=== PATIENT | female | born 1970 | race Caucasian/White ===

== ENCOUNTER → 2017-01-13 | Outpatient (CLI) | payer BC ==
[~2017-01-13] MED LIST: CYCL10TA6 PO
--- NOTE | 2017-01-15 09:05 | MAMMOGRAPHY REPORT ---
BILATERAL DIGITAL SCREENING MAMMOGRAM TOMOSYNTHESIS WITH CAD: 01/13/2017 CLINICAL HISTORY: Routine screening examination. TECHNIQUE: Breast tomosynthesis in addition to standard 2D mammography was performed. Current study was also evaluated with a Computer Aided Detection (CAD) system. COMPARISON: Comparison is made to exams dated: 09/19/2015 ultrasound and 09/19/2015 mammogram - [facility]. BREAST COMPOSITION: The tissue of both breasts is heterogeneously dense, which may obscure small ma sses. FINDINGS: No suspicious mass, architectural distortion or cluster of microcalcifications is seen. IMPRESSION: ACR BI-RADS CATEGORY 1: NEGATIVE There is no mammographic evidence of malignancy. A 1 year screening mammogram is recommended. The p atient will receive written notification of the results. Approximately 10% of breast cancers are not detected with mammography. A negative mammographic repor t should not delay biopsy if a clinically suggestive mass is present. Sariah mcneil/penlisa:01/13/2017 16:54:14 Software Design Engineer: Elenita CORONEL(Dwayne)([place]), [facility] letter sent: Normal 1/2 BI-RADS Code: ACR BI-RADS Category 1: Negative
== END | disposition home or self-care (01) ==
LOC: C.MAMM 16:29
PROVIDERS: ATTEND Obstetrics & Gynecology
DX: Z12.31 Encounter for screening mammogram for malignant neoplasm of breast (principal)

== ENCOUNTER → 2017-11-30 | Outpatient (CLI) | payer OTHER ==
[2017-11-30 16:38] LABS: BASO % 0.3 %; BASO ABS # 0.02 K/uL (0-0.2); EOS % 2.9 %; EOS ABS # 0.21 K/uL (0-0.5); HEMATOCRIT 38.9 % (37-47); HEMOGLOBIN 13.2 g/dL (12.0-16.0); IG# 0.02 K/uL (0.00-0.02); LYMPH % 40.3 %; LYMPH ABS # 2.88 K/uL (1.2-3.4); MEAN CELL VOLUME 90.5 fL (80-100); MEAN CORPUSCULAR HEMOGLOBIN 30.7 pg (25-34); MEAN CORPUSCULAR HGB CONC 33.9 g/dl (32-36); MEAN PLATELET VOLUME 10.3 fL (7.4-10.4); MONO % 6.7 %; MONO ABS # 0.48 K/uL (0.11-0.59); NEUT % 49.5 %; NEUT ABS # 3.54 K/uL (1.4-6.5); PLATELET COUNT 234 K/uL (130-400); RED CELL DISTRIBUTION WIDTH CV 13.3 % (11.5-14.5); RED CELL DISTRIBUTION WIDTH SD 43.5 fL (36.4-46.3); WHITE BLOOD COUNT 7.15 K/uL (4.8-10.8)
[2017-11-30 17:12] LABS: ALBUMIN 4.1 gm/dl (3.4-5.0); ALT/SGPT 20 U/L (12-78); BLOOD UREA NITROGEN 16 mg/dl (7-18); CALCIUM 9.1 mg/dl (8.5-10.1); CARBON DIOXIDE 27 mmol/L (21-32); CREATININE 0.76 mg/dl (0.60-1.20); GLUCOSE 113 mg/dl (70-99); POTASSIUM 3.7 mmol/L (3.5-5.1); SODIUM 135 mmol/L (136-145)
[2017-11-30 17:26] LABS: ALKALINE PHOSPHATASE 52 U/L (45-117); AST/SGOT 13 U/L (15-37); TOTAL PROTEIN 7.1 gm/dl (6.4-8.2)
== END | disposition home or self-care (01) ==
LOC: C.LAB1850 15:20
PROVIDERS: ATTEND Physician Assistant
DX: G43.909 Migraine, unspecified, not intractable, without status migrainosus (principal)

== ENCOUNTER → 2017-12-15 | Outpatient (CLI) | payer OTHER ==
--- NOTE | 2017-12-15 16:33 | DIAGNOSTIC IMAGING REPORT ---
CHEST 2 VIEWS ROUTINE HISTORY: Persistent cough. COMPARISON: None. FINDINGS: The lungs are clear. Cardiac silhouette is normal in size. No pleural effusions. No pneumothorax. IMPRESSION: No acute process. Electronically signed by: Boo Marks M.D. 12/15/2017 4:32 PM Dictated Date/Time: 12/15/2017 4:31 PM
== END | disposition home or self-care (01) ==
LOC: C.RAD1850 16:04
PROVIDERS: ATTEND Nurse Practitioner Family
DX: R05 Cough (principal); R06.02 Shortness of breath; R07.9 Chest pain, unspecified

== ENCOUNTER 2017-12-29 15:01 | Emergency (ER) | payer OTHER ==
[~2017-12-29] VITALS: Ht 165.1 cm; Wt 58.5 kg
[2017-12-29 15:03] VITALS: TEMP 36.3; Ht 165.1 cm; Wt 58.5 kg
[2017-12-29] MEDS ORDERED: KETOROLAC TROMETHAMINE 60 MG/2 ML VIAL IM STA (15:22)
[2017-12-29] MEDS ORDERED: DEXAMETHASONE SOD INJ 4 MG/ML 5 ML VIAL IM STA (15:22)
[2017-12-29] MEDS ORDERED: DEXAMETHASONE SOD INJ 4 MG/ML VIAL ONE (15:37)
[2017-12-29] MEDS ORDERED: CLAR500T38 PO (15:46)
[2017-12-29] MEDS ORDERED: HERBAL SUPPLEMENT PO (15:46)
[2017-12-29] MEDS ORDERED: ALBU18002 INH (15:46)
--- NOTE | 2017-12-29 16:20 | DIAGNOSTIC IMAGING REPORT ---
HEAD WITHOUT CONTRAST (CT) CT DOSE: HISTORY: Headache. Mental status change. Headache ?1 month TECHNIQUE: Multiaxial CT images of the head were performed without the use of intravenous contrast. A dose lowering technique was utilized adhering to the principles of ALARA. Comparison: None. Findings: Moderate mucosal thickening left mastoid air cells. The remaining sinuses are grossly clear. The calvarium and skull base are intact. The ventricles and sulci are within normal limits. There is no mass, hematoma, midline shift, or acute infarct. Impression: No acute intracranial abnormality. Moderate mucosal thickening left mastoid air cells. The above report was generated using voice recognition software. It may contain grammatical, syntax or spelling errors. Electronically signed by: Venkatesh Banerjee M.D. 12/29/2017 4:18 PM Dictated Date/Time: 12/29/2017 4:17 PM
--- NOTE | 2017-12-29 16:23 | DIAGNOSTIC IMAGING REPORT ---
CERVICAL SPINE W/O CLINICAL HISTORY: 47 years-old Female presenting with posterior head pain, headache for 1 month. TECHNIQUE: Multidetector CT of the cervical spine was performed without the use of intravenous contrast. IV contrast: None. A dose lowering technique was used consistent with the principles of ALARA (as low as reasonably achievable). COMPARISON: Plain radiographs from 06/06/2013. CT DOSE (mGy.cm): The estimated cumulative dose is 985.98 mGy.cm. FINDINGS: Harvest Manager topogram: Unremarkable. Reversal of normal cervical lordosis likely positional. Vertebral bodies maintain normal height and alignment. Intervertebral discs preserved with the exception of small disc osteophyte complexes at C5-6 and C6-7. No evidence of posterior bony spurring. No acute fracture or subluxation. No osseous neural foraminal or spinal canal narrowing. Extensive fluid in the mastoid air cells and left middle ear. Lung apices with biapical scarring paraspinal soft tissues demonstrate multiple thyroid nodules but are otherwise within normal limits allowing for noncontrast technique.. IMPRESSION: 1. No acute osseous injury of the cervical spine. 2. Mild degenerative changes focally at C5-6 and C6-7. No osseous neural foraminal or spinal canal narrowing. 3. Extensive fluid in the mastoid air cells and left middle ear. Electronically signed by: Beny Sellers M.D. 12/29/2017 4:21 PM Dictated Date/Time: 12/29/2017 4:18 PM
--- NOTE | 2017-12-29 16:37 | EMERGENCY ROOM VISIT NOTE ---
History First contact with patient: 15:09 Chief Complaint: HEAD PAIN Stated Complaint: HEAD PAIN History of Present Illness The patient is a 47 year old female who presents to the Emergency Room with complaints of headache for the past month. The patient states that she has a dull headache all the time and gets worse intermittently and will go up to an 8 out of 10 which it is today. The patient today states the pain is on the left posterior aspect of her head. She states sometimes it is on the right but mostly on the left. The patient denies any associated visual changes, dizziness , nausea or vomiting. The patient denies any neck pain. The patient states that the Motrin does ease up the pain but does not ever take it away. She has been seen by her family physician on several occasions for her current symptoms. She is scheduled with an ENT on January 10 for her left ear " looking funny" on exam. She states she does have ringing in the left ear and has slight decreased hearing in the left ear. The patient does not have a neurologist nor did they order a CT of the head. She does admit that they did laboratory testing in November. She also is battling recent pneumonia. She is currently on clindamycin. The patient states that sometimes she just feels very weak. She has a family history of an aneurysm in her brother that she had an MRA done in June 2013 which was negative for aneurysm. Review of Systems 10 system review was performed and was negative unless stated otherwise history of present illness. Past Medical/Surgical History Medical Problems: (1) Partial hysterectomy Social History Smoking Status: Never Smoker Alcohol Use: occasionally Marital Status: Housing Status: lives with family Occupation Status: employed Current/Historical Medications Scheduled Clarithromycin (Biaxin), 500 MG PO BID Scheduled PRN Albuterol Sulfate (Proair Respiclick), 2 PUFFS INH UD PRN for Cough/Wheeze/SOB [Herbal Supplement], 1 CAP PO UD PRN for Headache or Pain Physical Exam Vital Signs Date Time Temp Pulse Resp B/P (MAP) Pulse Ox O2 Delivery O2 Flow Rate FiO2 12/29/17 15:03 36.3 77 16 124/66 100 Room Air Physical Exam GENERAL: 47-year-old white female appears in no acute distress MENTAL Status: Alert and oriented 3. HEAD: Atraumatic, nontender to palpation. EYES: PERRLA. EOMs intact. EARS: Canals clear. Left TM with purulent fluid level noted as well as an air bubble noted behind the TM on the posterior aspect. NECK: Supple, no lymphadenopathy noted. No carotid bruits noted. LUNGS: Clear auscultation without wheezes rales or rhonchi. CARDIAC: Regular rate and rhythm without murmur. Pulses is full and equal throughout. CERVICAL SPINE: No gross bony deformity noted. The patient is nontender to palpation over the spinous processes in the paravertebral regions bilaterally. The patient has full range of motion of the cervical spine with pain elicited with right rotation only. NEURO:Cranial nerves two through 12 intact. Cerebellar function intact with [id number]. Fine motor intact with alternating finger motions. Medical Decision & Procedures ER Provider Diagnostic Interpretation: HEAD WITHOUT CONTRAST (CT) CT DOSE: HISTORY: Headache. Mental status change. Headache ?1 month TECHNIQUE: Multiaxial CT images of the head were performed without the use of intravenous contrast. A dose lowering technique was utilized adhering to the principles of ALARA. Comparison: None. Findings: Moderate mucosal thickening left mastoid air cells. The remaining sinuses are grossly clear. The calvarium and skull base are intact. The ventricles and sulci are within normal limits. There is no mass, hematoma, midline shift, or acute infarct. Impression: No acute intracranial abnormality. Moderate mucosal thickening left mastoid air cells. The above report was generated using voice recognition software. It may contain grammatical, syntax or spelling errors. Electronically signed by: Venkatesh Banerjee M.D. 12/29/2017 4:18 PM CERVICAL SPINE W/O CLINICAL HISTORY: 47 years-old Female presenting with posterior head pain, headache for 1 month. TECHNIQUE: Multidetector CT of the cervical spine was performed without the use of intravenous contrast. IV contrast: None. A dose lowering technique was used consistent with the principles of ALARA (as low as reasonably achievable). COMPARISON: Plain radiographs from 06/06/2013. CT DOSE (mGy.cm): The estimated cumulative dose is 985.98 mGy.cm. FINDINGS: Teacher Aide topogram: Unremarkable. Reversal of normal cervical lordosis likely positional. Vertebral bodies maintain normal height and alignment. Intervertebral discs preserved with the exception of small disc osteophyte complexes at C5-6 and C6-7. No evidence of posterior bony spurring. No acute fracture or subluxation. No osseous neural foraminal or spinal canal narrowing. Extensive fluid in the mastoid air cells and left middle ear. Lung apices with biapical scarring paraspinal soft tissues demonstrate multiple thyroid nodules but are otherwise within normal limits allowing for noncontrast technique.. IMPRESSION: 1. No acute osseous injury of the cervical spine. 2. Mild degenerative changes focally at C5-6 and C6-7. No osseous neural foraminal or spinal canal narrowing. 3. Extensive fluid in the mastoid air cells and left middle ear. Electronically signed by: Beny Sellers M.D. 12/29/2017 4:21 PM Medications Administered Medications (Trade) Dose Ordered Sig/Andrzej Route Start Time Stop Time Status Last Admin Dose Admin Ketorolac Tromethamine (Toradol Inj) 60 mg NOW STAT IM 12/29/17 15:22 12/29/17 15:25 DC 12/29/17 15:43 60 MG Diphenhydramine HCl (Benadryl Cap) 50 mg NOW ONCE PO 12/29/17 15:30 12/29/17 15:31 DC 12/29/17 15:42 50 MG Dexamethasone Sodium Phosphate (Decadron Inj) 12 mg STK-MED ONCE .ROUTE 12/29/17 15:37 12/29/17 15:38 DC 12/29/17 15:43 10 MG ED Course The patient was evaluated. The patient's EMR medication list were reviewed. The patient did have an MRA of the head performed in June 2013 which was negative. She had CBC and complete metabolic profile performed November 30, 2017 which was completely normal. The patient was given Benadryl 50 mg p.o., Decadron 10 mg IM and Toradol [address] of the head and chest was ordered and interpreted by the radiologist as above. CT of the neck revealed mild arthritis at the C5-C6 and C6-C7 level. CT the head was normal except for fluid within the left inner ear and fluid in the left mastoid. No evidence of mastoiditis. The patient was reevaluated and was feeling much better. She was informed of all findings and discharged home in stable condition. Medical Decision Differential includes: Acute intracranial bleed, trauma, meningitis, encephalitis, increased intracranial pressure, mass or mass effect, facial or dental infection, temporal arteritis, CVA, TIA, acute hypertensive emergency, sinusitis, carbon monoxide exposure, acoustic neuroma, mastoiditis [place] Drug Monitoring Program Search Results: patient reviewed within database Medication Reconcilliation Current Medication List: was personally reviewed by me Blood Pressure Screening Patient's blood pressure: Normal blood pressure Impression Primary Impression: Left otitis media with effusion Additional Impression: Headache Departure Information Dispostion Home / Self-Care Condition GOOD Referrals RV. Rousseau MD (PCP) Forms HOME CARE DOCUMENTATION FORM, IMPORTANT VISIT INFORMATION, WORK / SCHOOL INSTRUCTIONS Patient Instructions ED Headache Sinus, ED Otitis Media Acute Adult, [facility] Additional Instructions Continue clindamycin as prescribed. Recommend [id number] nasal decongestant for 5-7 days as directed on the label. Take Claritin daily. Tylenol and/or ibuprofen as needed for headache. Keep scheduled appointment with ENT on January 10 for definitive treatment. Problem Qualifiers Additional Impression: Headache Headache type: unspecified Headache chronicity pattern: acute headache Intractability: not intractable Qualified Codes: R51 - Headache
[2017-12-29 17:04] VITALS: BP 162/73; PULSE 77; O2SAT 100
== END 2017-12-29 17:04 | disposition home or self-care (01) ==
LOC: C.EDB 15:01
DX: H65.92 Unspecified nonsuppurative otitis media, left ear (principal); R51 Headache

== ENCOUNTER → 2018-01-20 | Outpatient (CLI) | payer OTHER ==
[~2018-01-20] MED LIST changes: +ALBU18002 INH; +CLAR500T38 PO; -CYCL10TA6 PO; +HERBAL SUPPLEMENT PO
--- NOTE | 2018-01-21 13:53 | MAMMOGRAPHY REPORT ---
BILATERAL DIGITAL SCREENING MAMMOGRAM TOMOSYNTHESIS WITH CAD: 01/20/2018 CLINICAL HISTORY: Routine screening. Patient has no complaints. TECHNIQUE: Breast tomosynthesis in addition to standard 2D mammography was performed. Current study was also evaluated with a Computer Aided Detection (CAD) system. COMPARISON: Comparison is made to exams dated: 01/13/2017 mammogram, 09/19/2015 mammogram, and 5 ultrasound - [facility]. BREAST COMPOSITION: The tissue of both breasts is heterogeneously dense, which may obscure small mas ses. FINDINGS: No suspicious masses, calcifications, or areas of architectural distortion are noted in ei ther breast. There has been no significant interval change compared to prior exams. IMPRESSION: ACR BI-RADS CATEGORY 1: NEGATIVE There is no mammographic evidence of malignancy. A 1 year screening mammogram is recommended. The pa tient will receive written notification of the results. Approximately 10% of breast cancers are not detected with mammography. A negative mammographic report should not delay biopsy if a clinically suggestive mass is present. Maria T Tse M.D. ah/:01/20/2018 16:45:02 Huc: Deepa CORONEL(Dwayne)(M), [facility] letter sent: Normal 1/2 BI-RADS Code: ACR BI-RADS Category 1: Negative
== END | disposition home or self-care (01) ==
LOC: C.MAMM 16:22
PROVIDERS: ATTEND Obstetrics & Gynecology
DX: Z12.31 Encounter for screening mammogram for malignant neoplasm of breast (principal)

== ENCOUNTER → 2018-01-25 | Outpatient (CLI) | payer OTHER ==
--- NOTE | 2018-01-25 07:57 | DIAGNOSTIC IMAGING REPORT ---
TEMPORAL ORB/SELLA/TEMP W/O CLINICAL HISTORY: H90.41 Right asymmetrical [id number] Ear pressureplease comment TECHNIQUE: Transaxial acquisition with multi axial reformatted images COMPARISON STUDY: 12/29/2017 FINDINGS: Improved aeration left mastoid air cells compared to the prior study. Mastoids bilaterally now are considered unremarkable. There is minimal mucosal thickening of the inferior left mastoid air cells. Structures the middle ear are unremarkable bilaterally. The tympanic membrane is intact bilaterally. The middle ear ossicles appear to be aligned appropriately. Scutum is intact. No evidence for cholesteatoma. No evidence for bony erosive process. The attic is clear bilaterally. IMPRESSION: Normal study of the middle ear and semicircular canals. Minimal residual mucosal thickening of the left mastoid air cells considerably improved from the prior study. No evidence for bony destructive process The above report was generated using voice recognition software. It may contain grammatical, syntax or spelling errors. Electronically signed by: Venkatesh Banerjee M.D. 01/25/2018 7:55 AM Dictated Date/Time: 01/25/2018 7:50 AM
== END | disposition home or self-care (01) ==
LOC: C.CTS 07:30
PROVIDERS: ATTEND Physician Assistant
DX: H93.8X9 Other specified disorders of ear, unspecified ear (principal); H90.41 Sensorineural hearing loss, unilateral, right ear, with unrestricted hearing on the contralateral side

== ENCOUNTER → 2018-02-02 | Outpatient (CLI) | payer OTHER ==
[~2018-02-02] MED LIST changes: +GADAVIST IV PRN
--- NOTE | 2018-02-02 19:06 | DIAGNOSTIC IMAGING REPORT ---
BRAIN COMBO FOR IAC HISTORY: 47 years-old Female H90.41 Right asymmetrical SNHLRIGHT GREATER THAN LEFT ASYMMETRIC acute right-sided hearing loss COMPARISON: Head CT 12/29/2017, MRA head 07/03/2013 TECHNIQUE: Multiplanar multisequence MRI of the brain was obtained both with and without the use of 5.5 mL Gadavist utilizing internal auditory canal institutional protocol. FINDINGS: The large btnwo-qo-eeuo ore puncher localizer images demonstrate no gross abnormality. There is no restricted diffusion to suggest acute or subacute infarction. The midline structures including the corpus callosum, brainstem, optic chiasm, 2 enteric and pineal glands are unremarkable the sagittal T1 series. There is no cerebellar tonsillar herniation. No acute intracranial hemorrhage, midline shift, abnormal extra-axial collections or hydrocephalus. The bilateral internal auditory canals demonstrate no focal mass. The anterior inferior cerebellar artery is seen looping into a proximally 50% of the right internal auditory canal abutting the 8th cranial nerve without definite angulation identified, nicely seen on image 49 series 8. Anterior inferior cerebellar artery partially loops into the proximal portion of the left internal auditory canal which is otherwise within normal limits. No cerebellar pontine angle mass. The bilateral 5th cranial nerves appear unremarkable. There is no abnormal intra-axial or extra-axial enhancement identified. No enhancing mass within the internal auditory canals identified. The major flow voids at the level of the skull base appear patent. Trace bilateral mastoid effusions. Mild mucosal thickening of the ethmoid air cells. Orbits are unremarkable. Scalp, calvarium and soft tissues are within normal limits. IMPRESSION: 1. No acute intracranial abnormality identified. 2. 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 No mass or abnormal enhancement identified within either internal auditory canal. 3. No abnormal enhancement The above report was generated using voice recognition software. It may contain grammatical, syntax or spelling errors. Electronically signed by: Harsh Hare M.D. 02/02/2018 7:04 PM Dictated Date/Time: 02/02/2018 5:47 PM
== END | disposition home or self-care (01) ==
LOC: C.MRI 16:55
PROVIDERS: ATTEND Physician Assistant
DX: H90.41 Sensorineural hearing loss, unilateral, right ear, with unrestricted hearing on the contralateral side (principal)

== ENCOUNTER → 2018-02-11 | Outpatient (CLI) | payer OTHER ==
[~2018-02-11] MED LIST changes: -GADAVIST IV PRN
== END | disposition home or self-care (01) ==
LOC: C.LAB1850 16:30
PROVIDERS: ATTEND Psychiatry & Neurology Neurology
DX: Z82.49 Family history of ischemic heart disease and other diseases of the circulatory system (principal); R51 Headache

== ENCOUNTER → 2018-02-14 | Outpatient (CLI) | payer OTHER ==
[~2018-02-14] MED LIST changes: +OPTIRAY 320 IV PRN
--- NOTE | 2018-02-14 17:13 | DIAGNOSTIC IMAGING REPORT ---
ANGIOGRAPHY HEAD COMBO CLINICAL HISTORY: Headaches. Ear pressure. Family history of aneurysm. COMPARISON STUDY: MRA of the head July 03, 2013, head CT December 29, 2017 and MRI of the brain February 02, 2018. TECHNIQUE: Unenhanced and arterial phase imaging of the head was performed. Intravenous injection of 116 cc of Optiray 320 IV was uneventful. Sagittal and coronal reconstructions were viewed as well as maximal intensity projections on an independent 3-D workstation. FINDINGS: No acute intracranial hemorrhage, midline shift or mass effect is present. Ventricular system is unremarkable. Basilar cisterns are patent. There are no extra-axial collections. Plasencia-white differentiation is maintained. There are no findings to suggest acute dural sinus thrombosis or acute territorial infarct. There are no significant calvarial abnormalities. There is trace fluid within the right inferior mastoid air cells. The bilateral M1, M2, A1 and A2 segments are patent. Posterior circulation is also intact. There is no intracranial aneurysm or abrupt vessel cut off. There is no evidence for dissection within the major intracranial vessels. IMPRESSION: 1. No acute intracranial findings. 2. Unremarkable CTA of the head. No intracranial aneurysm. 3. Trace fluid within the right mastoid air cells. Electronically signed by: José Miguel Vyas M.D. 02/14/2018 5:12 PM Dictated Date/Time: 02/14/2018 5:05 PM
== END | disposition home or self-care (01) ==
LOC: C.CTS 16:34
PROVIDERS: ATTEND Psychiatry & Neurology Neurology
DX: R51 Headache (principal); H93.8X9 Other specified disorders of ear, unspecified ear; Z82.49 Family history of ischemic heart disease and other diseases of the circulatory system

== ENCOUNTER → 2018-06-08 | Outpatient (CLI) | payer OTHER ==
[~2018-06-08] MED LIST changes: -OPTIRAY 320 IV PRN
--- NOTE | 2018-06-08 18:31 | DIAGNOSTIC IMAGING REPORT ---
CHEST 2 VIEWS ROUTINE HISTORY: 47 years-old Female R06.02 Shortness of breath acute back pain with shortness of breath COMPARISON: Chest radiograph 12/15/2017 TECHNIQUE: PA and lateral views of the chest FINDINGS: Cardiomediastinal and hilar silhouettes are within normal limits. No pneumothorax, pleural effusion, focal airspace consolidation or overt pulmonary edema. The bones of the chest appear grossly intact. IMPRESSION: No acute process. The above report was generated using voice recognition software. It may contain grammatical, syntax or spelling errors. Electronically signed by: Harsh Hare M.D. 06/08/2018 6:29 PM Dictated Date/Time: 06/08/2018 6:29 PM
[2018-06-08 19:12] LABS: BASO % 0.3 %; BASO ABS # 0.02 K/uL (0-0.2); EOS % 2.8 %; EOS ABS # 0.21 K/uL (0-0.5); HEMATOCRIT 39.3 % (37-47); IG# 0.01 K/uL (0.00-0.02); LYMPH % 45.9 %; LYMPH ABS # 3.41 K/uL (1.2-3.4); MEAN CELL VOLUME 90.3 fL (80-100); MEAN CORPUSCULAR HEMOGLOBIN 29.9 pg (25-34); MEAN CORPUSCULAR HGB CONC 33.1 g/dl (32-36); MEAN PLATELET VOLUME 10.2 fL (7.4-10.4); MONO % 5.5 %; MONO ABS # 0.41 K/uL (0.11-0.59); NEUT % 45.4 %; NEUT ABS # 3.37 K/uL (1.4-6.5); PLATELET COUNT 273 K/uL (130-400); RED CELL DISTRIBUTION WIDTH CV 13.3 % (11.5-14.5); RED CELL DISTRIBUTION WIDTH SD 44.3 fL (36.4-46.3); WHITE BLOOD COUNT 7.43 K/uL (4.8-10.8)
[2018-06-08 19:36] LABS: BLOOD UREA NITROGEN 14 mg/dl (7-18); CREATININE 0.92 mg/dl (0.60-1.20); GLUCOSE 91 mg/dl (70-99); POTASSIUM 4.2 mmol/L (3.5-5.1); SODIUM 138 mmol/L (136-145)
[2018-06-08 19:37] LABS: ALBUMIN 4.1 gm/dl (3.4-5.0); ALKALINE PHOSPHATASE 51 U/L (45-117); ALT/SGPT 20 U/L (12-78); AST/SGOT 13 U/L (15-37); CALCIUM 9.2 mg/dl (8.5-10.1); CARBON DIOXIDE 30 mmol/L (21-32)
[2018-06-10 13:41] LABS: ANA SCREEN TC 249X NEGATIVE (NEGATIVE)
== END | disposition home or self-care (01) ==
LOC: C.LAB 17:41
PROVIDERS: ATTEND Internal Medicine
DX: R06.02 Shortness of breath (principal); R51 Headache; R53.83 Other fatigue; M79.89 Other specified soft tissue disorders